=== PATIENT | female | born 1995 | race Caucasian/White ===

== ENCOUNTER 2018-01-08 04:15 | Inpatient (IN) ==
[2018-01-08] MEDS ORDERED: MEPERIDINE 50 MG/1 ML VIAL IV PRN (04:27)
[2018-01-08] MEDS ORDERED: ONDANSETRON 4 MG/2 ML VIAL IV PRN (04:27)
[2018-01-08] MEDS ORDERED: OXYTOCIN/LR 20 UNIT/1,000 ML BAG IV SCH (04:30)
[2018-01-08] MEDS: LACTATED RINGERS 1,000 ML IV SCH ×3 (04:38→09:29)
[2018-01-08] MEDS ORDERED: CITRIC ACID/SODIUM CITRATE 30 ML UDCUP PO ONE (06:15)
[2018-01-08] MEDS ORDERED: FAMOTIDINE 20 MG/2 ML VIAL IV ONE (06:15)
[2018-01-08] MEDS ORDERED: fentaNYL 2 MCG/ROPIV 0.2% EPID 150 ML EPIDURAL SCH (06:30)
[2018-01-08 06:32] LABS: Basophils % 0.2 % (0.0-0.8); Eosinophils # 0.1 10*3/uL (0.0-0.87); Eosinophils % 0.9 % (0.00-10.9); Hematocrit 35.1 VOL% (35.7-47.0); Hemoglobin 11.9 GM/DL (12.0-16.0); Immature Granulocytes % 0.5 %; Immature Granulocytes Absolute 0.05 #; Lymphocytes # 1.5 10*3/uL (1.4-4.0); Lymphocytes % 15.1 % (21.3-54.2); Mean Corpuscular HGB Conc 33.9 GM/DL (32-36); Mean Corpuscular Hemoglobin 29 PG (27-34); Mean Corpuscular Volume 85.6 FL (87-102); Mean Platelet Volume 11.7 FL (9.6-12.0); Monocytes # 0.6 10*3/uL (0.11-0.8); Monocytes % 6.1 % (1.7-12.7); Neutrophils # 7.7 10*3/uL (1.4-7.4); Neutrophils % 77.2 % (38.7-73.9); Platelet Count 212 T/CUMM (130-400); Red Cell Distribution Width 13.7 % (9.3-17.3); White Blood Count 9.9 T/CUMM (4-12)
[2018-01-08] MEDS ORDERED: ePHEDrine 50 MG/ML AMP ONE (06:32)
[2018-01-08 06:37] LABS: INR 0.9; PT Patient Result 9.4 SECS; Partial Thromboplastin Time 25.1 SECS (0-40)
[2018-01-08 06:58] LABS: Alanine Aminotransferase 14 U/L (13-56); Albumin 2.5 G/DL (3.4-5.0); Alkaline Phosphatase 293 U/L (45-117); Aspartate Amino Transferase 18 U/L (0-37); Bilirubin,Total < 0.39 MG/DL (0.2-1.0); Blood Urea Nitrogen 9 MG/DL (7-18); Calcium 10.5 MG/DL (8.5-10.1); Glucose 84 MG/DL (74-106); Osmolality,Calculated 276.4 MOS/KG (273-304); Potassium 4.3 MMOL/L (3.5-5.1); Sodium 140 MMOL/L (136-145); Total Protein 6.3 G/DL (6.4-8.3)
[2018-01-08] MEDS ORDERED: LABETALOL 100 MG TABLET PO SCH (09:00)
[2018-01-08 09:12] LABS: Apearance,Urine CLEAR (Clear); Bacteria,Urine Occasional /HPF (Few); Bilirubin,Urine Negative (Negative); Blood, Urine Negative (Negative); Glucose,Urine (UA) Negative (Negative); Ketones,Urine Negative (Negative); Mucus,Urine Occasional /LPF (Occasional); Nitrite,Urine Negative (Negative); Protein,Urine Negative; RBC,Urine 3 /HPF (0-4); Urine Color Straw (Yellow); Urine Specific Gravity 1.008 (1.001-1.035); Urine Urobilinogen < 2.0 EU/DL (0.2-1.0); WBC,Urine 1 /HPF (0-6)
[2018-01-08] MEDS ORDERED: LIDOCAINE 1% 50 ML VIAL ONE (09:33)
[2018-01-08] MEDS ORDERED: miSOPROStol 200 MCG TABLET ONE (09:33)
[2018-01-08 11:38] LABS: Cord Arterial Blood HCO3 18.1 MMOL/L
[2018-01-08 11:41] LABS: Cord Venous Blood HCO3 21.4 MMOL/L; Cord Venous Blood PCO2 46.8 MMHG; Cord Venous Blood PO2 25.2
[2018-01-08] MEDS ORDERED: OXYTOCIN/LR 20 UNIT/1,000 ML BAG IV ONE (12:40)
[2018-01-08] MEDS ORDERED: ACETAMINOPHEN 325 MG TABLET PO PRN ×2 (15:03→17:41)
[2018-01-08] MEDS ORDERED: BENZOCAINE 20%/MENTHOL 0.5% SPRAY 56 GM CAN TOP PRN (17:41)
[2018-01-08] MEDS ORDERED: RHO(D) IMMUNE GLOBULIN 300 MCG SYRINGE IM ONE (17:41)
[2018-01-08] MEDS ORDERED: ACETAMINOPHEN/CODEINE 300-30 MG TABLET PO PRN (17:41)
[2018-01-08] MEDS ORDERED: BISACODYL 10 MG SUPP RECTAL PRN (17:41)
[2018-01-08] MEDS ORDERED: HYDROCORTISONE 2.5% RECTAL CREAM 30 GM TUBE TOP PRN (17:41)
[2018-01-08] MEDS ORDERED: LANOLIN 50% CREAM 0.3 OZ TUBE TOP PRN (17:41)
[2018-01-08] MEDS ORDERED: WITCH HAZEL PADS 100/JAR TOP PRN (17:41)
[2018-01-08] MEDS ORDERED: MEASLES/MUMPS/RUBELLA VACCINE 0.5 ML VIAL SUBCUT ONE (17:41)
[2018-01-08] MEDS ORDERED: DIPH/TET/ACEL PERT BOOSTER VACCINE 0.5 ML VIAL IM ONE (17:41)
[2018-01-08] MEDS: oxyCODONE/ACETAMINOPHEN 5-325 MG TABLET PO PRN (18:22)
[2018-01-08] MEDS: IBUPROFEN 800 MG TABLET PO PRN (18:22)
[2018-01-08] MEDS: LABETALOL 100 MG TABLET PO SCH (21:12)
[2018-01-08] MEDS: DOCUSATE SODIUM 100 MG CAPSULE PO SCH (21:12)
[2018-01-09] MEDS: oxyCODONE/ACETAMINOPHEN 5-325 MG TABLET PO PRN ×2 (03:06→09:22)
[2018-01-09] MEDS: IBUPROFEN 800 MG TABLET PO PRN ×2 (03:06→14:33)
[2018-01-09 07:07] LABS: Basophils % 0.3 % (0.0-0.8); Eosinophils # 0.1 10*3/uL (0.0-0.87); Hematocrit 28.3 VOL% (35.7-47.0); Hemoglobin 9.4 GM/DL (12.0-16.0); Immature Granulocytes % 0.5 %; Immature Granulocytes Absolute 0.05 #; Lymphocytes # 1.6 10*3/uL (1.4-4.0); Lymphocytes % 15.1 % (21.3-54.2); Mean Corpuscular HGB Conc 33.2 GM/DL (32-36); Mean Corpuscular Hemoglobin 29 PG (27-34); Mean Corpuscular Volume 86.5 FL (87-102); Mean Platelet Volume 11.6 FL (9.6-12.0); Monocytes # 0.6 10*3/uL (0.11-0.8); Monocytes % 5.8 % (1.7-12.7); Neutrophils # 8.3 10*3/uL (1.4-7.4); Neutrophils % 77.3 % (38.7-73.9); Platelet Count 161 T/CUMM (130-400); Red Blood Count 3.27 MC/CUMM (3.8-5.5); Red Cell Distribution Width 13.9 % (9.3-17.3); White Blood Count 10.8 T/CUMM (4-12)
[2018-01-09] MEDS: LABETALOL 100 MG TABLET PO SCH ×2 (10:07→20:41)
[2018-01-09] MEDS: DOCUSATE SODIUM 100 MG CAPSULE PO SCH ×2 (10:07→20:41)
[2018-01-10] MEDS: oxyCODONE/ACETAMINOPHEN 5-325 MG TABLET PO PRN ×2 (00:05→09:49)
[2018-01-10] MEDS: IBUPROFEN 800 MG TABLET PO PRN ×2 (00:06→09:50)
[2018-01-10 08:07] VITALS: BP 133/90
[2018-01-10] MEDS: LABETALOL 100 MG TABLET PO SCH (09:11)
[2018-01-10] MEDS: DOCUSATE SODIUM 100 MG CAPSULE PO SCH (09:11)
== END 2018-01-10 11:10 | disposition home or self-care (01) | DRG 775 ==
LOC: N.LDOUT 04:15 → EDSTATUS 04:15 → N.LD 04:18 → N.OB 17:40
PROVIDERS: ADMIT Obstetrics & Gynecology; ATTEND Obstetrics & Gynecology